=== PATIENT | female | born 1965 | race Caucasian/White ===

== ENCOUNTER 2017-09-20 13:19 | Day surgery (SDC) | payer OTHER ==
[2017-09-20] MEDS ORDERED: PROPOFOL 20 ML (17:41)
[2017-09-20] MEDS ORDERED: FENTAnyl 50 MCG/ML VIAL (17:41)
== END 2017-09-20 19:58 | disposition home or self-care (01) ==
LOC: GIL 13:19
DX: Z12.11 Encounter for screening for malignant neoplasm of colon (principal); K64.8 Other hemorrhoids
CPT/HCPCS: 45378